=== PATIENT | female | born 1965 | race Caucasian/White ===

== ENCOUNTER 2018-03-11 01:16 | Inpatient (IN) | payer OTHER ==
[2018-03-11] VITALS (12 sets, daily range): BP systolic 99–128; BP diastolic 67–92
[~2018-03-11] VITALS: Ht 160 cm; Wt 111.6 kg
[~2018-03-11 01:16] MED LIST: BUTA1CAP6 PO; CETI10CA8 PO; DIVA250T84 PO; ELETR40PT PO; FLUT16SP19 NS; GABA-547 PO; GLUC1TAB13 PO; HYDR-4225 PO; HYDR2TAB74 PO; ISOM1CAP2 PO; KET10 IM; MULT-1335 PO; NAPR-1043 PO; PRAM0.5T23 PO; SERT-1 PO; TIZA4CAP3 PO
[2018-03-11] MEDS ORDERED: ceFAZolin(*) 2GM/D5W 50ML 50 ML IVPB ONE ×2 (05:30→09:30)
[2018-03-11] MEDS ORDERED: THROMBIN (BOVINE) 20,000 UNIT VIAL ONE (08:18)
[2018-03-11] MEDS ORDERED: ACETAMINOPHEN 500 MG TAB ONE (09:07)
[2018-03-11] MEDS ORDERED: MIDAZOLAM 2 MG/2 ML VIAL IVP PRN (09:30)
[2018-03-11] MEDS ORDERED: PREGABALIN 150 MG CAPSULE PO ONE (09:30)
[2018-03-11] MEDS ORDERED: LIDOCAINE/SOD BICARB 8.4% SYR ID ONE (09:30)
[2018-03-11] MEDS ORDERED: FAMOTIDINE 20 MG TAB PO ONE (09:30)
[2018-03-11] MEDS ORDERED: NORMOSOL R SOLN(*) 1000 ML BAG 1,000 ML IV PRN (09:30)
[2018-03-11] MEDS ORDERED: ACETAMINOPHEN 500 MG TAB PO ONE (09:30)
[2018-03-11] MEDS ORDERED: REMIFENTANIL HCL 1 MG VIAL ONE (09:50)
[2018-03-11] MEDS ORDERED: HYDROmorphone HCL 2 MG/ML SDV ONE (12:16)
--- NOTE | 2018-03-11 12:31 | RADIOLOGY IMAGING REPORT ---
FACILITY: [facility] - [place] PATIENT NAME: Shweta Smyth : 1965 MR: [id number] V: [id number] EXAM DATE: ORDERING PHYSICIAN: SEVERO DE JESUS TECHNOLOGIST: Location: [facility] [place] Patient: Shweta Smyth : 1965 Visit/Account:[id number] Date of Sevice: 03/11/2018 Technique: C-ARM FLUORO 1 HR HISTORY: MIS L4-5 TRANSFORAMINAL LUMBAR INTERBODY FUSION Comparison studies: None FINDINGS: 4 operative fluoroscopic images were obtained of the lower lumbar spine. The patient is st atus post posterior spinal fusion hardware with interbody spacer at L4-L5. Fluoroscopy time: 187.5 seconds IMPRESSION: 1. Intraoperative fluoroscopic radiographs as described above. Please see operative report for furt her details. Report Dictated By: Kameron Ibarra DO at 03/11/2018 12:25 PM Report E-Signed By: Kameron Ibarra DO at 03/11/2018 12:26 PM WSN:[id number]
[2018-03-11] MEDS ORDERED: fentaNYL CITR 100 MCG/2 ML AMP ONE (12:58)
[2018-03-11] MEDS ORDERED: ePHEDrine 25 MG/5 ML DISP.SYR IVP ONE (14:02)
[2018-03-11] MEDS ORDERED: PROPOFOL EMUL(*) 10MG/ML 20 ML 160 ML ONE (14:02)
[2018-03-11] MEDS ORDERED: DEXAMETHASONE SOD PHOS 10MG/ML ONE (14:02)
[2018-03-11] MEDS ORDERED: ONDANSETRON 4 MG/2 ML VIAL ONE (14:02)
[2018-03-11] MEDS ORDERED: ROCURONIUM BROM 10 MG/ML 10 ML ONE (14:02)
[2018-03-11] MEDS ORDERED: SUCCINYLCHOL CHL 200MG/10ML VL ONE (14:02)
[2018-03-11] MEDS ORDERED: BISACODYL 10 MG SUPP PR PRN (14:20)
[2018-03-11] MEDS ORDERED: MAGNESIUM HYDROXIDE* 30ML UDCP PO PRN (14:20)
[2018-03-11] MEDS ORDERED: ACETAMINOPHEN 500 MG TAB PO PRN (14:20)
[2018-03-11] MEDS ORDERED: FLUSH 10 ML SYR IVP PRN (14:20)
[2018-03-11] MEDS ORDERED: ONDANSETRON 4 MG/2 ML VIAL IVP PRN (14:20)
[2018-03-11] MEDS ORDERED: ACETAMINOPHEN(*)1000 MG/100 ML 100 ML IVPB PRN (14:20)
[2018-03-11] MEDS ORDERED: diphenhydrAMINE 25 MG CAP PO PRN (14:20)
[2018-03-11] MEDS ORDERED: LR(*) 1000 ML BAG 1,000 ML IV PRN (14:20)
[2018-03-11] MEDS ORDERED: BENZOCAINE/MENTHOL 1 EACH LOZG PO PRN (14:20)
[2018-03-11] MEDS ORDERED: PRAMIPEXOLE DIHYDROCHL 0.25 MG PO PRN (14:35)
--- NOTE | 2018-03-11 14:48 | Hospitalist Consultation ---
History of Present Illness Requesting Physician Dr. Simmons Reason for Consult Medical Management Chief Complaint s/p lumbar fusion History of Present Illness She was admitted s/p lumbar fusion. It is reported the surgery went well and without complication. History Problems: (1) Restless leg syndrome Status: Chronic (2) Migraine Status: Chronic (3) Seasonal allergies Status: Chronic (4) History of gastric bypass (5) History of hysterectomy Home Meds Reported Medications Naproxen Sodium (ALEVE) 220 Mg Tablet, 220 MG PO TID, TAB 03/04/18 Multivitamin With Minerals (MULTIPLE VITAMIN) 1 Each Tablet, 1 EACH PO DAILY, TAB 03/04/18 Glucosamine Hcl/Chondr Dial A Na (OSTEO BI-FLEX CAPLET) 1 Each Tablet, 1 EACH PO BID 03/04/18 Hydroxyzine Hcl (HYDROXYZINE HCL) 25 Mg Tablet, 25 MG PO Y for MIGRAINE 03/04/18 Hydromorphone Hcl (DILAUDID) 2 Mg Tablet, 2 MG PO PRN Y for MIGRAINE 03/04/18 Butalb/Acetaminophen/Caffeine (FIORICET 50-300-40) 1 Each Capsule, 1-2 EACH PO Q4H Y for MIGRAINE, CAPSULE 03/04/18 Isomethept/Acetaminop/Dichlphn ([id number]-VAYTVQPK) 1 Each Capsule, 1 EACH PO Y for MIGRAINE, CAPSULE 03/04/18 Ketorolac Tromethamine (KETOROLAC TROMETHAMINE) 10 Mg Tab, 30 MG IM PRN Y for MIGRAINE, TAB 03/04/18 Tizanidine Hcl (TIZANIDINE HCL) 4 Mg Capsule, 4 MG PO DAILY Y for MIGRAINE, CAPSULE 03/04/18 Eletriptan Hydrobromide (RELPAX) 40 Mg Tab, 40 MG PO Y for MIGRAINE, TAB 03/04/18 Divalproex Sodium (DEPAKOTE) 250 Mg Tablet.dr, 250 MG PO BID, TAB 03/04/18 Fluticasone Prop 50 Mcg Ns (FLONASE 50 MCG NS) 16 Gm [place].susp, 2 SPRAYS NS QDAY, BOT 03/04/18 Pramipexole Di-Hcl (PRAMIPEXOLE DIHYDROCHLORIDE) 0.5 Mg Tablet, 0.5 MG PO HS Y for RESTLESS LEGS 03/04/18 Gabapentin (GABAPENTIN) 100 Mg Capsule, 100-300 MG PO HS, CAPSULE 03/04/18 Sertraline Hcl (ZOLOFT) 50 Mg Tablet, 1 TAB PO QDAY, TAB 03/04/18 Cetirizine Hcl (ZYRTEC) 10 Mg Capsule, 10 MG PO QDAY, CAPSULE 03/04/18 Allergies: Coded Allergies: acetaminophen (Verified Adverse Reaction, Mild, ITCHING, 03/04/18) TAKE BENEDRYL WITH IT oxycodone (Verified Adverse Reaction, Mild, ITCHING, 03/04/18) TAKE BENEDRYL WITH IT Patient History: FH: COPD (chronic obstructive pulmonary disease) MOTHER FH: HTN (hypertension) FATHER FH: diabetes mellitus BROTHER OR SISTER GRANDMA FH: liver cancer FATHER FH: lung cancer FATHER FH: melanoma MOTHER Hx Smoking: No Smoking Status: Never Smoker Caffeine Intake: Coffee, Tea Caffeine/Cups Per Day: 1-2 Hx Alcohol Use: Yes Alcohol Used: Beer, Wine, Liquor Hx Substance Use Disorder: No Social Drug Use: Never History of IV Drug Use: No Review of Systems All Systems Reviewed/Normal: Yes, Except as Noted Musculoskeletal: Pain (low back) Exam Vital Signs Vital Signs Date Time Temp Pulse Resp B/P (MAP) Pulse Ox O2 Delivery O2 Flow Rate FiO2 03/11/18 14:18 94 Nasal Cannula 3.0 03/11/18 13:55 97.4 74 12 125/91 (102) General Appearance: Alert, Awake, No Acute Distress, Afebrile Neuro: No Gross deficits Cardiovascular: Regular Rate and Rhythm Respiratory: No Respiratory Distress, Clear to Auscultation GI: Abd Soft and Non-Tender Psych: Alert & Oriented X3, Appropriate Mood & Affect Assessment and Plan Problems: (1) S/P lumbar fusion Status: Acute Assessment & Plan: Followed by Dr. Simmons. (2) Migraine Status: Chronic Assessment & Plan: She is on chronic treatment with Depakote for prevention. She takes many as needed medications for migraines, which have been held at this time. (3) Restless leg syndrome Status: Chronic Assessment & Plan: She is on chronic treatment with Gabapentin and Pramipexole. (4) Seasonal allergies Status: Chronic Assessment & Plan: She is on chronic treatment with Flonase and Zyrtec. (5) Morbid obesity with BMI of 40.0-44.9, adult Venous Thromboembolism Antithrombotics Is Pt On Any Antithrombotics?: No Exam Sepsis Risk: No Definite Risk STEFFANY RENDON [facility] Mar 11, 2018 14:47
[2018-03-11] MEDS: APAP/HYDROCODONE 325/5 TAB PO PRN ×2 (14:51→19:24)
[2018-03-11] MEDS: DIAZEPAM 5 MG TAB PO PRN ×2 (14:52→20:58)
[2018-03-11] MEDS: HYDROmorphone HCL 2 MG/ML SDV IVP PRN ×2 (16:42→21:49)
[2018-03-11] MEDS: ceFAZolin(*) 2GM/D5W 50ML 50 ML IVPB SCH (18:04)
[2018-03-11] MEDS: DOCUSATE SODIUM 100 MG CAP PO SCH (20:58)
[2018-03-12] MEDS: APAP/HYDROCODONE 325/5 TAB PO PRN ×3 (00:40→08:20)
[2018-03-12] MEDS: ceFAZolin(*) 2GM/D5W 50ML 50 ML IVPB SCH ×2 (02:46→09:11)
[2018-03-12] MEDS: DIAZEPAM 5 MG TAB PO PRN ×2 (02:46→08:20)
[2018-03-12 02:47] VITALS: BP 107/58
[2018-03-12] MEDS: HYDROmorphone HCL 2 MG/ML SDV IVP PRN (03:48)
--- NOTE | 2018-03-12 04:15 | OPERATIVE REPORT 1 ---
EVENT DATE: March 11, 2018 SURGEON: Terrence Simmons MD ANESTHESIOLOGIST: Scar Jj MD ANESTHESIA: General endotracheal. GREEN CHAINER: DARIUS Dominique PREOPERATIVE DIAGNOSIS L4-L5 degenerative disk disease with left-sided facet cyst and left L5 radiculopathy. POSTOPERATIVE DIAGNOSIS L4-L5 degenerative disk disease with left-sided facet cyst and left L5 radiculopathy. PROCEDURE PERFORMED L4-L5 minimally invasive transforaminal lumbar interbody fusion. IV FLUIDS 1900 mL. ESTIMATED BLOOD LOSS 30 mL. IMPLANTS 6.5 mm x 45 mm pedicle screws from [employer] x four, 40 mm connecting rods from [employer] x two, locking caps from [employer] x four, a 13 mm lordotic size large curvilinear interbody implant from [employer] and a 3 cc Vi-Bone. SPECIMENS None. DRAINS None. COMPLICATIONS None. DISPOSITION Post anesthesia care unit. INDICATIONS FOR SURGERY Ms. Smyth is a 53-year-old female who presented with chief complaint of severe radiating left lower extremity pain, numbness and tingling. Symptoms were present in an L5 distribution, and her physical examination was significant for positive straight leg raising test on the left and some weakness in her great toe extensor. Her imaging studies showed degenerative changes at the L4-L5 level with facet hypertrophy, increased fluid in the facets and a large facet cyst on the left that contacted and compressed the L5 nerve root. Secondary to ongoing symptoms and failure of physical therapy, medications, activity modifications, etc., Ms. Smyth was offered and elected to undergo left-sided approach, minimally invasive transforaminal lumbar interbody fusion at L4-L5. Prior to surgery, I explained in detail to the patient the possible risks of surgery. This included bleeding, infection, persistent and/or worsening pain, need for further surgery, spinal fluid leak, meningitis, damage to surrounding structures, nerve root injury, , blindness, sexual dysfunction, autonomic nervous system dysfunction and other unforeseen medical and surgical complications. An understanding that spine surgery is more predictive at improving extremity discomfort than axial spine pain was stressed. DESCRIPTION OF PROCEDURE On the day of surgery, the patient was met in the preoperative hold area, and all questions were answered. Her operative site was identified and marked by myself. She was brought to the operating room, and after succumbing to anesthesia, was positioned in the prone position on a Kumar table. All bony protuberances and soft tissues were well padded in the standard fashion. Care was taken to maintain appropriate perfusion pressures during anesthesia. Preoperative antibiotics were administered according to the appropriate timing schedule. At the conclusion of the procedure, the sponge and needle count were correct x two. Final time out was undertaken by members of the operating team to confirm correct patient, correct levels and correct surgery. Fluoroscopy was used to ray appropriate landmarks for percutaneous pedicle screw placement. The final time out was undertaken by members of the operating team, and the patient was prepped and draped in the standard sterile orthopedic fashion. Marty style incisions were made bilaterally, and sharp dissection was carried out down to the fascia, which was divided longitudinally. Blunt finger dissection was taken down to the starting points for pedicle screws, and the fluoroscopy was then brought into the field. Jamshidi needles were placed at the 9 o'clock position of the pedicles on the left and the 3 o'clock position of the pedicles on the right. These were then tapped through the pedicles themselves and guide wires were placed. The Jamshidis were then removed, and a lateral image was obtained to confirm appropriate placement of our wires. The tap was then used to tap all pedicle screws and determine appropriate screw length. We used neurophysiologic monitoring to test the tap to confirm absence of bony breaching. We then selected 6.5 mm x 45 mm screws and placed those bilaterally at L4 and L5. The screw shanks on the left were fit with 100 mm retractor blades. The retractor device was then attached to the blades, and the medial blade attachment was used as well. I was therefore able to fully expose the facet joint on the left at L4-L5. This was cleared of soft tissues, and then an osteotome was used to osteotomize the facet, removing both the inferior articular process of L4 and the superior articular process of L5. This allowed us access to the transforaminal space, and the disk space was then identified. An annulotomy was made with the annulotomy knife, and then a discectomy was performed using a combination of curettes, kun and pituitary rongeurs. Once this was complete, under fluoroscopic guidance, we inserted the 13 mm high trial. This had an excellent fit. We therefore selected the 13 mm size large interbody device. We packed bone graft in the anterior aspect of the disk space, and then filled the interbody device with Vi-Bone. The interbody device was then tapped into place with a mallet, and appropriate position was confirmed on AP and lateral images. The secondary impacter was used to rotate the device so that it sat in the appropriate position in the anterior aspect of the interbody space. Once this was confirmed on fluoro, the retractor blades were removed from the screw shanks, and towers were placed. The caliper was used to measure for appropriate zenia length, and we selected 40 mm rods for both sides. These were placed with standard percutaneous technique , and locking caps were then placed as well. We tightened the locking caps in the L4 screws, and then utilized the compressor to compress bilaterally across the disk space. Towers were then removed, and final x-rays were obtained that showed excellent positioning of the hardware. The wounds were then irrigated with sterile saline solution and closed in layers using inverted interrupted sutures for the subcutaneous layer and a running subcuticular skin stitch. Sponge and needle counts were correct x two. POSTOPERATIVE CARE PLAN Ms. Smyth will remain in the hospital until she meets discharge criteria. She will follow up with me in two weeks time for wound check and examination. GINGER
[2018-03-12 07:16] VITALS: BP 113/71
[2018-03-12] MEDS ORDERED: DOCU240C84 PO (07:48)
[2018-03-12] MEDS ORDERED: LOR5/325 PO (07:49)
[2018-03-12] MEDS ORDERED: DIA5 PO (07:50)
[2018-03-12] MEDS: DOCUSATE SODIUM 100 MG CAP PO SCH (08:17)
--- NOTE | 2018-03-12 08:35 | Hospitalist Progress Note ---
Subjective Progress Notes Subjective She has no complaints this morning. She had no acute events overnight. She states she would like to go home. Patient Complains of: Cardiovascular: No: Chest Pain Respiratory: No: Shortness of Breath Physical Exam Vital Signs Date Time Temp Pulse Resp B/P (MAP) Pulse Ox O2 Delivery O2 Flow Rate FiO2 03/12/18 08:27 93 Room Air 03/12/18 07:16 97.7 73 16 113/71 (85) 03/12/18 02:47 3.0 General Appearance: Alert, Awake, No Acute Distress, Afebrile Neuro: No Gross deficits Cardiovascular: Regular Rate and Rhythm Respiratory: No Respiratory Distress, Clear to Auscultation GI: Soft and Non-Tender Psych: Alert & Oriented X3, Appropriate Mood & Affect Assessment and Plan Problems: (1) S/P lumbar fusion Status: Acute Assessment & Plan: Followed by Dr. Simmons. (2) Migraine Status: Chronic Assessment & Plan: She is on chronic treatment with Depakote for prevention. She takes many as needed medications for migraines, which have been held at this time. (3) Restless leg syndrome Status: Chronic Assessment & Plan: She is on chronic treatment with Gabapentin and Pramipexole. (4) Seasonal allergies Status: Chronic Assessment & Plan: She is on chronic treatment with Flonase and Zyrtec. (5) Morbid obesity with BMI of 40.0-44.9, adult Exam Sepsis Risk: No Definite Risk STEFFANY RENDON ACCOUNTING COORDINATOR Mar 12, 2018 08:35
--- NOTE | 2018-03-12 08:37 | RADIOLOGY IMAGING REPORT ---
FACILITY: [facility] - [place] PATIENT NAME: Shweta Smyth : 1965 MR: [id number] V: [id number] EXAM DATE: ORDERING PHYSICIAN: SEVERO DE JESUS TECHNOLOGIST: Location: [facility] - [place] Patient: Shweta Smyth : 1965 Visit/Account:[id number] Date of Sevice: 03/12/2018 Lumbar spine Indication: Back pain. Comparison: Intraoperative films from March 11, 2018. FINDINGS: 3 views of the lumbar spine were obtained. There are 5 lumbar type vertebral bodies. There is no acute osseous or acute alignment abnormality. L4-L5 posterior fusion hardware with L4-L5 interbody disc device. No visualized hardware complication . No evidence of spondylolisthesis or spondylolysis. The vertebral body heights appear well-maintained. Moderate to advanced degenerative disc disease at L2-L3 and L3-L4 with loss of disc height, endplate irregularity, and marginal osteophytes. Mild disc disease at L1-L2 and L5-S1. Mild/moderate multileve l facet arthropathy. Mild levoscoliosis. Surgical clips identified within the right upper and left upper quadrants. IMPRESSION: 1. L4-L5 posterior fusion hardware without visualized complication. 2. Moderate to advanced degenerative disc disease at L2-L3 and L3-L4. Report Dictated By: Mahin Melgoza MD at 03/12/2018 8:32 AM Report E-Signed By: Mahin Melgoza MD at 03/12/2018 8:34 AM WSN:[id number]
[2018-03-12] MEDS ORDERED: CETIRIZINE HCL 10 MG TAB PO SCH (09:00)
[2018-03-12] MEDS ORDERED: DIVALPROEX SOD DR 250 MG TAB PO SCH (09:00)
[2018-03-12] MEDS ORDERED: FLUTICASONE PROP 0.05% 16 GM SCH (09:00)
[2018-03-12] MEDS ORDERED: SERTRALINE HCL 50 MG TAB PO SCH (09:00)
== END 2018-03-12 07:42 | disposition home or self-care (01) | DRG 460 ==
LOC: OR 01:16 → MED 13:54 → OBSVTOIN 13:54
PROVIDERS: ADMIT Orthopaedic Surgery; ATTEND Orthopaedic Surgery
PROC: 0SG00AJ Fusion of Lumbar Vertebral Joint with Interbody Fusion Device, Posterior Approach, Anterior Column, Open Approach (ICD-10-PCS; principal; 2018-03-11 10:04)
DX: M51.16 Intervertebral disc disorders with radiculopathy, lumbar region (principal); Z68.41 Body mass index [BMI] 40.0-44.9, adult; M71.38 Other bursal cyst, other site; E66.01 Morbid (severe) obesity due to excess calories; G25.81 Restless legs syndrome; J30.2 Other seasonal allergic rhinitis; Z98.84 Bariatric surgery status; Z90.710 Acquired absence of both cervix and uterus; Z88.5 Allergy status to narcotic agent
CPT/HCPCS: 36415; 72100; 76000; 86850; 86900; 86901; 97161; C1713; G0378; J0330; J0690; J1100; J1170; J2405; J2704; J3010; J7120